=== PATIENT | female | born 1955 | race Caucasian/White ===

== ENCOUNTER → 2017-11-22 | Outpatient (CLI) | payer BC ==
[~2017-11-22] MED LIST: ADVAIR IH; AMBIEN 10MG10 MG PO; ATENOLOL50 MG PO; BUSPIRONE; DUONEB 3 MG/3 ML3 ML IH; HYDROCORTISONE 10MG PO; VICODIN 5/5001 UDTAB PO
== END ==
LOC: COL.LAB 14:26
DX: Z01.812 Encounter for preprocedural laboratory examination (principal); M25.552 Pain in left hip